=== PATIENT | male | born 1970 | race Caucasian/White ===

== ENCOUNTER → 2019-02-27 | Outpatient (CLI) | payer BC ==
[~2019-02-27] MED LIST: FENOFIBRATE145 MG PO
--- NOTE | 2019-02-28 07:11 | Diagnostic Imaging Report ---
History: Radiculopathy. Back, hip nerve pain Comparison studies: None Technique: Sagittal and axial T2 , sagittal T1 and IR, axial spin density oblique, coronal T2. Intravenous contrast: None Findings: Transitional lumbosacral anatomy with partially sacralized L5 with bilateral pseudoarthroses and rudimentary L5-S1 disc. Alignment: Normal lordosis. No scoliosis. Soft tissues: No T2 hyperintense inflammatory changes. Small right kidney with lobulated contour. Paraspinal muscles: No signal abnormalities. Well-preserved. No atrophic changes Lower thoracic cord: Normal in signal and morphology. The tip of the conus is at T12-L1. Cauda equina: No masses. No arachnoiditis. Vertebrae: No compression fracture or infection. Incidental T1 hyperintense L1 vertebral body hemangioma. Small shallow Schmorl's nodes present along the endplates from T10 to L3. Degenerative changes: L1-L2: Patent canal and foramina. L2-L3: Patent canal and foramina. L3-L4: Symmetric bulging disc and mild facet arthrosis do not result significant canal or foraminal stenosis. L4-L5: Mildly degenerated disc with loss of disc height and loss of T2 disc signal. Asymmetric right disc bulge with superimposed 15 mm x 6 mm x 11 mm (SI x AP x TV) and inferiorly migrated right subarticular disc extrusion/possible extruded disc which impinges on the right L5 nerve root. Disc herniation is T2 hyperintense which may indicate recent herniation. Asymmetric right disc bulge and mild facet arthrosis result in mild right foraminal stenosis. No significant canal or left foraminal stenosis. L5-S1: Transitional level. Patent canal and foramina. Partially imaged sacroiliac joints: Degenerative changes bilaterally. No marrow edema or joint effusion. IMPRESSION: 1. Transitional lumbosacral anatomy with sacralized L5. 2. Right subarticular L4-L5 disc extrusion/possible sequestered disc impinges on the right L5 nerve root. 3. Mild right L4-L5 degenerative foraminal stenosis. 4. No significant canal stenosis. 5. Incidental small right kidney. Signed by: Dr. Maged Bae M.D. on 02/28/2019 7:08 AM
== END ==
LOC: MRI 14:36
PROVIDERS: ATTEND Specialist
DX: M54.16 Radiculopathy, lumbar region (principal)
CPT/HCPCS: 72148

== ENCOUNTER 2019-03-05 13:58 | Outpatient (RCR) | payer BC ==
[2019-03-13] MEDS ORDERED: TRICOR48 MG PO (15:19)
[2019-03-13] MEDS ORDERED: ASPIRIN81 MG PO (15:19)
[2019-03-13] MEDS ORDERED: METOPROLOL SUCC25 MG PO (15:19)
[2019-03-13] MEDS ORDERED: LIPITOR20 MG PO (15:19)
[2019-03-15] MEDS ORDERED: NORCO 7.5-3251 EACH PO (13:10)
== END 2019-03-23 ==
LOC: PT 13:58
PROVIDERS: ATTEND Specialist
DX: M54.16 Radiculopathy, lumbar region (principal); M62.81 Muscle weakness (generalized); M79.604 Pain in right leg

== ENCOUNTER 2019-03-14 09:08 | Observation (INO) | payer BC ==
[2019-03-13 15:55] LABS: BASOPHILS % 0.6 % (0.0-1.0); EOSINOPHILS # (AUTO) 0.2 (0.0-0.4); EOSINOPHILS % 2.4 % (0.0-6.0); HEMATOCRIT 43.4 % (38.2-49.6); LYMPHOCYTES # (AUTO) 2.6 (1.0-3.2); LYMPHOCYTES % 38.9 % (18.0-39.1); MEAN CORPUSCULAR HEMOGLOBIN 31.5 pg (28-32); MEAN CORPUSCULAR HGB CONC 34.6 g/dL (31-35); MEAN CORPUSCULAR VOLUME 91.2 fL (81-99); MONOCYTES # (AUTO) 0.7 (0.2-0.8); MONOCYTES % 9.8 % (4.4-11.3); NEUTROPHILS # (AUTO) 3.2 (2.1-6.9); PLATELET COUNT 205 x10e3/uL (140-360); RED BLOOD COUNT 4.76 x10e6/uL (4.3-5.7)
[2019-03-13 16:05] LABS: INR 0.92; PROTHROMBIN TIME 12.9 seconds (11.9-14.5)
[2019-03-13 16:06] LABS: PARTIAL THROMBOPLASTIN TIME 29.6 seconds (23.8-35.5)
[2019-03-13 16:12] LABS: ANION GAP 12.8 mmol/L (8-16); BLOOD UREA NITROGEN 13 mg/dL (7-26); BUN/CREATININE RATIO 10 (6-25); CALCIUM 9.3 mg/dL (8.4-10.2); CARBON DIOXIDE 26 mmol/L (22-29); CHLORIDE 103 mmol/L (98-107); CREATININE, SERUM 1.24 mg/dL (0.72-1.25); EST GLOMERULAR FILTRATION RATE > 60 ML/MIN (60-); GLUCOSE 69 mg/dL (74-118); POTASSIUM 3.8 mmol/L (3.5-5.1); SODIUM 138 mmol/L (136-145)
--- NOTE | 2019-03-13 16:13 | Diagnostic Imaging Report ---
EXAMINATION: CHEST 2 VIEWS INDICATION: Pre-operative COMPARISON: None FINDINGS: LINES/TUBES:None LUNGS:The lungs are well-inflated. No focal consolidation or pulmonary edema. PLEURA:No pleural effusion or pneumothorax. MEDIASTINUM:The cardiomediastinal silhouette appears normal in size and shape. BONES/SOFT TISSUES:No acute osseous injury. ABDOMEN:No free air under the diaphragm. IMPRESSION: No focal pneumonia or pulmonary edema. Signed by: Girma Forman MD on 03/13/2019 4:10 PM
[~2019-03-14] VITALS: Ht 182.9 cm; Wt 102.1 kg
[~2019-03-14 09:08] MED LIST changes: +ACETAMINOPHEN 1000 MG/100 ML 100 ML IV ONE; +ASPIRIN81 MG PO; +IBUPROFEN 800MG/ 250ML 250 ML IV ONE; +LIDOCAINE HCL (LTA) 4 ML SOLN ONE; +LIPITOR20 MG PO; +METOPROLOL SUCC25 MG PO; +TRICOR48 MG PO
--- OUTSIDE RECORDS SUMMARY | 2019-03-14 09:14 | XMS REPORT ---
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 Allergies, Adverse Reactions, Alerts This patient has no known allergies or adverse reactions. Medications This patient has no known medications. Results Test Description Test Time Test Comments Text Results Atomic Results Result Comments CHEST 2 VIEWS 2019-03-13 16:09:00 [place] [address] Patient Name: LUPE ROSS MR #: [id number] : 1970 Age/Sex: 48/M Req #: [id number] Adm Physician: Ordered by: RADHA KHAN MD Report #: [id number] Location: OR Room/Bed: Procedure: [id number] DX/CHEST 2 VIEWS Exam Date: Exam Time: REPORT STATUS: Signed EXAMINATION: CHEST 2 VIEWS INDICATION: Pre-operative COMPARISON: None FINDINGS: LINES/TUBES:None LUNGS:The lungs are well- inflated. No focal consolidation or pulmonary edema. PLEURA:No pleural effusion or pneumothorax. MEDIASTINUM:The cardiomediastinal silhouette appears normal in size and shape. BONES/SOFT TISSUES:No acute osseous injury. ABDOMEN:No free air under the diaphragm. IMPRESSION: No focal pneumonia or pulmonary edema. Signed by: Pina Morrison MD on 03/13/2019 4:10 PM Dictated By: PINA MORRISON MD 09 Transcribed By: JOSEP on 03/13/191609 COPY TO: RADHA KHAN MD MRI SPINE LUMBAR WO 2019-02-28 06:56:00 [place] [address] Patient Name: LUPE ROSS MR #: [id number] : 1970 Age/Sex: 48/M Req #: [id number] Adm Physician: Ordered by: KELVIN TRUJILLO MD Report #: [id number] Location: MRI Room/Bed: Procedure: [id number] MRI/MRI SPINE LUMBAR WO Exam Date: Exam Time: REPORT STATUS: Signed History: Radiculopathy. Back, hip nerve pain Comparison studies: No ne Technique: Sagittal and axial T2 , sagittal T1 and IR, axial spin density oblique, coronal T2. Intravenous contrast: None Findings: Transitional lumbosacral anatomy with partially sacralized L5 with bilateral pseudoarthroses and rudimentary L5-S1 disc. Alignment: Normal lordosis. No scoliosis. Soft tissues: No T2 hyperintense inflammatory changes. Small right kidney with lobulated contour. Paraspinal muscles: No signal abnormalities. Well-preserved. No atrophic changes Lower thoracic cord: Normal in signal and morphology. The tip of the conus is at T12-L1. Cauda equina: No masses. No arachnoiditis. Vertebrae: No compression fracture or infection. Incidental T1 hyperintense L1 vertebral body hemangioma. Small shallow Schmorl's nodes present along the endplates from T10 to L3. Degenerative changes: L1-L2: Patent canal and foramina. L2-L3: Patent canal and foramina. L3-L4: Symmetric bulging disc and mild facet arthrosis do not result significant canal or foraminal stenosis. L4-L5: Mildly degenerated disc with loss of disc height and loss of T2 disc signal. Asymmetric right disc bulge with superimposed 15 mm x 6 mm x 11 mm (SI x AP x TV) and inferiorly migrated right subarticular disc extrusion/possible extruded disc which impinges on the right L5 nerve root. Disc herniation is T2 hyperintense which may indicate recent herniation. Asymmetric right disc bulge and mild facet arthrosis result in mild right foraminal stenosis. No significant canal or left foraminal stenosis. L5-S1: Transitional level. Patent canal and foramina. Partially imaged sacroiliac joints: Degenerative changes bilaterally. No marrow edema or joint effusion. IMPRESSION: 1. Transitional lumbosacral anatomy with sacralized L5. 2. Right subarticular L4-L5 disc extrusion/possible sequestered disc impinges on the right L5 nerve root. 3. Mild right L4-L5 degenerative foraminal stenosis. 4. No significant canal stenosis. 5. Incidental small right kidney. Signed by: Dr. Kelvin Bae M.D. on 02/28/2019 7:08 AM Dictated By: KELVIN BAE MD 7 Transcribed By: JOSEP on 02/28/19707 COPY TO: KELVIN TRUJILLO MD
[2019-03-14] MEDS ORDERED: BUPIVACAINE 0.5%/EPI 30 ML SDV INJ ONE (09:16)
[2019-03-14] MEDS ORDERED: BACITRACIN 50,000 UNIT VIAL ONE (09:16)
[2019-03-14] MEDS ORDERED: THROMBIN FOR SOLN 5,000 UNIT VIAL ONE (09:16)
[2019-03-14] MEDS ORDERED: CEFAZOLIN SOD 1 GM/NS 50ML 50 ML IV ONE (09:54)
--- NOTE | 2019-03-14 13:11 | Operative Report ---
DATE OF PROCEDURE: 03/14/2019 SURGEON: Alvaro Leong MD PREOPERATIVE DIAGNOSIS: Right L4-L5 disk herniation with radiculopathy, M51.16. POSTOPERATIVE DIAGNOSIS: Right L4-L5 disk herniation with radiculopathy, M51.16. PROCEDURES: Right L4-L5 laminotomy, medial facetectomy, and microsurgical diskectomy, 11687. ANESTHESIA: General. INDICATIONS: The patient is a 48-year-old man, who presents with a subarticular right L4-L5 disk herniation in the setting of transitional lumbosacral anatomy. He is symptomatic with an intractable right L5 radiculopathy. He was taken to the surgery for microsurgical decompression of the L5 nerve root. PROCEDURE IN DETAIL: After induction of general anesthesia, the patient was placed on the operating table in prone position over Santhosh frame. Lumbar region was prepped and draped in sterile fashion. A preoperative x-ray was obtained. A small midline incision was created. Lumbar fascia was opened in right of midline and a subperiosteal dissection was carried out to expose the right-sided L4 and L5 lamina and the medial aspect of the L4-L5 facet joint. A 2nd x-ray confirmed correct localization. The operating microscope was brought in. A high-speed drill equipped with the gustavo bur was used to drill the inferior aspect of lamina of L4 and superior rim of the lamina of L5 and the medial rim of the L4-L5 facet joint. The hypertrophic ligamentum flavum was resected and the dural sac and the L5 nerve root were exposed. The nerve root was slightly retracted medially. The herniated disk material came into view just below the level of the disk space. The posterior longitudinal ligament was incised with a #11 blade and the herniated disk material was retrieved with a micro ball probe and grasped with a micropituitary rongeur and removed. This maneuver was repeated several additional times and additional fragments of this were retrieved and removed from the right L5 lateral recess. The opening into the annulus of the disk was found to be quite small, therefore the disk space itself was not disrupted during this operation. Excellent decompression of the L5 nerve root had been achieved. The wound was irrigated with bacitracin solution. Meticulous hemostasis was secured. Retractor was removed. The lumbar fascia was closed with 0 Vicryl sutures. The subcutaneous layer was closed with 2-0 Vicryl sutures. The skin was closed with 3-0 Monocryl sutures in subcuticular fashion. Steri-Strips and dressing were applied. The patient was awakened, extubated, and taken to postanesthesia care in stable condition. No intraoperative complications were encountered. Estimated blood loss was 10 mL. Alvaro Leong MD PP/AWAIS /[id number]
[2019-03-14] MEDS ORDERED: FENTANYL CITRATE/PF 100MCG/2 ML INJ ONE ×2 (13:41→14:30)
[2019-03-14] MEDS ORDERED: MORPHINE SULFATE 5 MG/ML VIAL IM PRN (13:45)
[2019-03-14] MEDS ORDERED: ACETAMINOPHEN 325 MG TAB PO PRN (13:45)
[2019-03-14] MEDS ORDERED: ZOLPIDEM TARTRATE 5 MG TAB PO PRN (13:45)
[2019-03-14] MEDS ORDERED: MAGNESIUM/ALUMINUM/SIMETHICONE 30 ML UDC PO PRN (13:45)
[2019-03-14] MEDS ORDERED: PROMETHAZINE HCL (IM) 25 MG/ML VIAL IM PRN (13:45)
[2019-03-14] MEDS ORDERED: ONDANSETRON HCL INJ 2MG/ML 2ML 2 MG/ML VIAL IV PRN (13:45)
[2019-03-14] MEDS: LACTATED RINGER'S 1,000 ML IV SCH ×3 (14:00→19:28)
[2019-03-14] MEDS ORDERED: MORPHINE SULFATE INJ 4 MG/ML INJ 1ML IM PRN (14:15)
--- NOTE | 2019-03-14 14:26 | NUR ---
RECEIVED REPORT FROM BHAVIN IN PACU AWAITING FOR PT TO ARRIVE TO FLOOR
[2019-03-14 14:29] VITALS: BP 147/93
--- NOTE | 2019-03-14 14:29 | NUR ---
RECEIVED PT TO FLOOR AA0X3 ASSISTED PT FROM STRETCHER TO TOILET. PT VOIDED INTO TOILET CLEAR YELLOW URINE PT LOWER BACK DRESSING IS DRY AND INTACT NO LEAKAGE NOTED PT HAS AN IV TO THE RIGHT HAND 20 WITH LR RUNNING SITE IS CLEAN AND DRY PT PAIN IS A 4.10 STATES IS COMFORTABLE AND WILL CAN WHEN NEEDING SOMETHING SED AND COMPRESSIONS STOCKINGS PRESENT WILL CONTINUE TO MONITOR PT CLOSELY SIDE RAILSX2, BED WHEELS LOCKED, CALL LIGHT IS WITHIN EASY REACH, INSTRUCTED TO CALL FOR ASSISTANCE IF NEEDED
[2019-03-14] MEDS ORDERED: MIDAZOLAM HCL 2 MG/2 ML VIAL ONE (14:30)
[2019-03-14 16:03] VITALS: BP 137/82
[2019-03-14] MEDS: OXYCODONE/ACETAMINOPHEN 5-325 1 EACH TABLET PO PRN ×2 (16:06→20:13)
[2019-03-14] MEDS: CARISOPRODOL 350 MG TAB PO PRN ×2 (16:07→20:13)
[2019-03-14] MEDS ORDERED: LIDOCAINE HCL 2% JELLY 5 ML TUBE ONE (18:46)
[2019-03-14] MEDS ORDERED: PROPOFOL IV EMULSION 10 MG/ML 20 ML VIAL ONE (18:46)
[2019-03-14] MEDS ORDERED: SEVOFLURANE INHAL SOLN 250 ML PEN BTL ONE (18:46)
[2019-03-14] MEDS ORDERED: LIDOCAINE HCL 2% LOCAL INJ 5 ML SDV VIAL INJ ONE (18:46)
[2019-03-14] MEDS ORDERED: ROCURONIUM BROMIDE 10 MG/ML 5ML VIAL ONE (18:46)
[2019-03-14] MEDS ORDERED: ONDANSETRON HCL INJ 2MG/ML 2ML 2 MG/ML VIAL ONE (18:46)
[2019-03-14] MEDS ORDERED: DEXAMETHASONE SOD PHOS INJ 4 MG/ML VIAL ONE (18:46)
[2019-03-14] MEDS: CEFAZOLIN SOD 1 GM/NS 50ML 50 ML IV SCH (19:08)
[2019-03-14 19:30] VITALS: BP 137/82
[2019-03-14 20:32] VITALS: BP 152/78
[2019-03-14] MEDS ORDERED: ATORVASTATIN 40 MG TAB PO SCH (21:00)
[2019-03-14] MEDS: CEPACOL SORE THROAT LOZENGES PO PRN (21:05)
[2019-03-15] VITALS: BP 124/71
[2019-03-15] MEDS: CEPACOL SORE THROAT LOZENGES PO PRN (01:09)
[2019-03-15] MEDS: OXYCODONE/ACETAMINOPHEN 5-325 1 EACH TABLET PO PRN ×3 (01:14→10:20)
[2019-03-15] MEDS: CARISOPRODOL 350 MG TAB PO PRN ×2 (01:15→05:43)
[2019-03-15 04:00] VITALS: BP 117/61
[2019-03-15] MEDS: CEFAZOLIN SOD 1 GM/NS 50ML 50 ML IV SCH (04:18)
[2019-03-15 08:13] VITALS: BP 130/72
[2019-03-15] MEDS ORDERED: METOPROLOL SUCCINATE 25 MG TAB XL PO SCH (09:00)
[2019-03-15] MEDS ORDERED: FENOFIBRATE 48 MG TAB PO SCH (09:00)
[2019-03-15 10:28] VITALS: BP 130/72
[2019-03-15] MEDS ORDERED: NORCO 7.5-3251 EACH PO (13:10)
[2019-03-15 13:25] VITALS: BP 140/86
--- NOTE | 2019-03-15 14:30 | NUR ---
BACK DRESSING REMOVED, STERI STRIPS INTACT, DISCHARGE INSTRUCTIONS REVIEWED WITH PT, PT VERBALIZED UNDERSTANDING, WHEELED OFF UNIT VIA WC, NO CHANGE IN CONDITION
== END 2019-03-15 14:38 | disposition home or self-care (01) ==
LOC: OR 09:08 → PACU V 13:46 → MED/SURG 14:29
PROVIDERS: ADMIT Neurological Surgery; ATTEND Neurological Surgery
DX: M51.16 Intervertebral disc disorders with radiculopathy, lumbar region (principal); Z79.82 Long term (current) use of aspirin; I25.10 Atherosclerotic heart disease of native coronary artery without angina pectoris; Z98.61 Coronary angioplasty status; Z01.810 Encounter for preprocedural cardiovascular examination; Z01.812 Encounter for preprocedural laboratory examination; Z01.811 Encounter for preprocedural respiratory examination
CPT/HCPCS: 36415; 63047; 71046; 72020; 80048; 85025; 85610; 85730; 86850; 86900; 88304; 93005; G0378 ×2; J0131; J0690 ×2; J1100; J2001 ×2; J2250; J2405; J2704; J3010; J7121

== ENCOUNTER 2019-05-23 06:28 | Observation (INO) | payer BC ==
[2019-05-21 15:09] LABS: BASOPHILS % 0.5 % (0.0-1.0); EOSINOPHILS # (AUTO) 0.2 (0.0-0.4); EOSINOPHILS % 2.8 % (0.0-6.0); HEMATOCRIT 44.5 % (38.2-49.6); HEMOGLOBIN 15.2 g/dL (14.0-18.0); LYMPHOCYTES # (AUTO) 3.5 (1.0-3.2); LYMPHOCYTES % 40.8 % (18.0-39.1); MEAN CORPUSCULAR HEMOGLOBIN 31.6 pg (28-32); MEAN CORPUSCULAR HGB CONC 34.2 g/dL (31-35); MEAN CORPUSCULAR VOLUME 92.5 fL (81-99); MONOCYTES # (AUTO) 0.7 (0.2-0.8); MONOCYTES % 8.5 % (4.4-11.3); NEUTROPHILS # (AUTO) 4.1 (2.1-6.9); NEUTROPHILS % 46.9 % (38.7-80.0); PLATELET COUNT 193 x10e3/uL (140-360); RED BLOOD COUNT 4.81 x10e6/uL (4.3-5.7); RED CELL DISTRIBUTION WIDTH 11.9 % (11.7-14.4)
[2019-05-21 15:22] LABS: INR 0.92; PROTHROMBIN TIME 12.8 seconds (11.9-14.5)
[2019-05-21 15:23] LABS: PARTIAL THROMBOPLASTIN TIME 30.7 seconds (23.8-35.5)
[2019-05-21 16:03] LABS: ANION GAP 12.8 mmol/L (8-16); BLOOD UREA NITROGEN 17 mg/dL (7-26); BUN/CREATININE RATIO 17 (6-25); CALCIUM 9.2 mg/dL (8.4-10.2); CARBON DIOXIDE 26 mmol/L (22-29); CHLORIDE 105 mmol/L (98-107); CREATININE, SERUM 1.03 mg/dL (0.72-1.25); EST GLOMERULAR FILTRATION RATE > 60 ML/MIN (60-); GLUCOSE 81 mg/dL (74-118); POTASSIUM 3.8 mmol/L (3.5-5.1); SODIUM 140 mmol/L (136-145)
[~2019-05-23] VITALS: Ht 180.3 cm; Wt 102.1 kg
[~2019-05-23 06:28] MED LIST changes: -ACETAMINOPHEN 1000 MG/100 ML 100 ML IV ONE; -IBUPROFEN 800MG/ 250ML 250 ML IV ONE; -LIDOCAINE HCL (LTA) 4 ML SOLN ONE; +NORCO 7.5-3251 EACH PO
[2019-05-23] MEDS ORDERED: BACITRACIN 50,000 UNIT VIAL ONE (06:44)
[2019-05-23] MEDS ORDERED: BUPIVACAINE 0.5%/EPI 30 ML SDV INJ ONE (06:44)
[2019-05-23] MEDS ORDERED: THROMBIN FOR SOLN 5,000 UNIT VIAL ONE (06:44)
[2019-05-23] MEDS ORDERED: CEFAZOLIN SOD 1 GM/NS 50ML 100 ML IV ONE (07:10)
[2019-05-23] MEDS ORDERED: ACETAMINOPHEN 1000 MG/100 ML 100 ML IV ONE (07:17)
[2019-05-23] MEDS ORDERED: IBUPROFEN 800MG/ 200ML 200 ML IV ONE (07:17)
[2019-05-23] MEDS ORDERED: LIDOCAINE HCL (LTA) 4 ML SOLN ONE (07:17)
[2019-05-23] MEDS: LACTATED RINGER'S 1,000 ML IV SCH ×2 (09:46→17:08)
[2019-05-23] MEDS ORDERED: ZOLPIDEM TARTRATE 5 MG TAB PO PRN (10:00)
[2019-05-23] MEDS ORDERED: PROMETHAZINE HCL (IM) 25 MG/ML VIAL IM PRN (10:00)
[2019-05-23] MEDS ORDERED: ONDANSETRON HCL INJ 2MG/ML 2ML 2 MG/ML VIAL IV PRN (10:00)
[2019-05-23] MEDS ORDERED: MORPHINE SULFATE 5 MG/ML VIAL IM PRN (10:00)
[2019-05-23] MEDS ORDERED: CARISOPRODOL 350 MG TAB PO PRN (10:00)
[2019-05-23] MEDS ORDERED: OXYCODONE/ACETAMINOPHEN 5-325 1 EACH TABLET PO PRN (10:00)
[2019-05-23] MEDS ORDERED: ACETAMINOPHEN 325 MG TAB PO PRN (10:00)
[2019-05-23] MEDS ORDERED: MAGNESIUM/ALUMINUM/SIMETHICONE 30 ML UDC PO PRN (10:00)
[2019-05-23] MEDS ORDERED: FENTANYL CITRATE/PF 100MCG/2 ML INJ ONE ×2 (11:09→19:20)
--- NOTE | 2019-05-23 12:05 | NUR ---
received patient s/p laminectomy, awake and alert and no s/s of distress and no c/o pain at this time. Patient and updated on plan of care and all questions addressed. call montero in reach and will continue to monitor.
[2019-05-23 12:30] VITALS: BP 112/66
[2019-05-23] MEDS: HYDROMORPHONE 2MG/ML 2 MG/ML ML IV PRN ×2 (14:25→23:13)
[2019-05-23 14:44] VITALS: BP 112/66
[2019-05-23 16:00] VITALS: BP 117/64
[2019-05-23] MEDS: CEFAZOLIN SOD 1 GM/NS 50ML 50 ML IV SCH (16:16)
--- NOTE | 2019-05-23 16:39 | Operative Report ---
DATE OF PROCEDURE: 05/23/2019 SURGEON: Alvaro Leong MD PREOPERATIVE DIAGNOSIS: Recurrent right L4-L5 disk herniation with radiculopathy, M51.16. POSTOPERATIVE DIAGNOSIS: Recurrent right L4-L5 disk herniation with radiculopathy, M51.16. PROCEDURE: Redo right L4-L5 laminotomy and medial facetectomy and microsurgical diskectomy, 01062. ANESTHESIA: General. INDICATIONS: The patient is a 48-year-old man, who presents with a large recurrent right L4-L5 disk herniation with severe right L5 radiculopathy. He was taken to the operating room for redo microsurgical diskectomy. DESCRIPTION OF PROCEDURE: After induction of general anesthesia, the patient was placed on the operating table in prone position over Santhosh frame. The lumbar region was prepped and draped in sterile fashion. A preoperative x-ray was obtained. A small midline incision was created precisely overlying his previous incision scar. The lumbar fascia was opened in right of midline and dissection was carried out to expose the right side of L4 and L5 laminae and the region of the previous laminotomy. The second x-ray confirmed correct localization. The operating microscope was brought in. A high-speed drill equipped with a 4 mm gustavo bur was used to extend laminotomy slightly superiorly and laterally along the medial aspect of the L4-L5 facet joint. The virgin epidural plane was defined and the residual ligamentum flavum in this region was resected. The epidural plane was then followed inferiorly and epidural scar overlying the dura was resected to expose the lateral margin of the dura and the L5 traversing nerve root. A ball probe was then passed ventral to the nerve root and used to retrieve the edge of the extruded disk material. This edge was then grasped with a micropituitary rongeur and a very large fragment of recurrent disk herniation was carefully retrieved and removed as one single fragment. Excellent decompression was immediately achieved in this fashion. The opening into the annulus of this was slightly enlarged with a #11 blade and the loose contents of the disk were evacuated with a micro-pituitary rongeur. Meticulous hemostasis was secured. The lumbar fascia was closed with #0 Vicryl suture. Subcutaneous layer was closed with 2-0 Vicryl sutures. The skin was closed with 3-0 Monocryl sutures in subcuticular fashion. Steri-Strips and dressing were applied. The patient was awakened, extubated, and taken to postanesthesia care unit in stable condition. No intraoperative complications were encountered. ESTIMATED BLOOD LOSS: Minimal. Alvaro Leong MD PP/AWAIS /[id number]
[2019-05-23 17:30] VITALS: BP 136/67
--- NOTE | 2019-05-23 17:30 | NUR ---
pt arrived to unit resp even and unlabored at this time no distress noted pt able to make needs known, pt oriented to room and call light.
[2019-05-23] MEDS: HYDROCODONE/APAP 7.5MG-325MG 1 EA TAB PO PRN (18:20)
--- NOTE | 2019-05-23 18:25 | NUR ---
pt discharged home , pt was given information to follow up with his pcp, and RENAL doctor, iv site removed, no swelling no redness to site, and medication NO MEDICATION GIVEN AT THIS TIME. Addendum: 05/23/19 at 1827 by Maria G Cruz LVN WRONG DOCUMENTARY ENTRY ON WRONG PT. GURINDER LATHAM
[2019-05-23] MEDS ORDERED: DEXAMETHASONE SOD PHOS INJ 4 MG/ML VIAL ONE (18:31)
[2019-05-23] MEDS ORDERED: NEOSTIGMINE 1 MG/ML 10ML VIAL ONE (18:31)
[2019-05-23] MEDS ORDERED: GLYCOPYRROLATE INJ 0.2 MG/ML VIAL ONE (18:31)
[2019-05-23] MEDS ORDERED: SEVOFLURANE INHAL SOLN 250 ML PEN BTL ONE (18:31)
[2019-05-23] MEDS ORDERED: ROCURONIUM BROMIDE 10 MG/ML 5ML VIAL ONE (18:31)
[2019-05-23] MEDS ORDERED: ONDANSETRON HCL INJ 2MG/ML 2ML 2 MG/ML VIAL ONE (18:31)
[2019-05-23] MEDS ORDERED: LIDOCAINE HCL 2% LOCAL INJ 5 ML SDV VIAL INJ ONE (18:31)
[2019-05-23] MEDS ORDERED: PROPOFOL IV EMULSION 10 MG/ML 20 ML VIAL ONE (18:31)
[2019-05-23] MEDS ORDERED: MIDAZOLAM HCL 2 MG/2 ML VIAL ONE (19:20)
[2019-05-23 20:00] VITALS: BP 140/72
[2019-05-23 21:18] VITALS: BP 140/72
[2019-05-24] VITALS: BP 121/58
[2019-05-24] MEDS: CEFAZOLIN SOD 1 GM/NS 50ML 50 ML IV SCH ×2 (00:25→09:11)
[2019-05-24] MEDS: HYDROMORPHONE 2MG/ML 2 MG/ML ML IV PRN (03:36)
[2019-05-24 04:00] VITALS: BP_SYST 122; BP_SYST 167; BP_DIAS 72; BP_DIAS 81
[2019-05-24] MEDS: LACTATED RINGER'S 1,000 ML IV SCH (05:42)
--- NOTE | 2019-05-24 07:04 | NUR ---
patient endorsed to next shift for continuity of care.
[2019-05-24] MEDS: HYDROCODONE/APAP 7.5MG-325MG 1 EA TAB PO PRN (07:19)
[2019-05-24 08:00] VITALS: BP 139/93
--- NOTE | 2019-05-24 08:30 | NUR ---
Morning med pass completed and the pt. advised that I will get his discharge paperwork completed francesco.
[2019-05-24] MEDS ORDERED: FENOFIBRATE 48 MG TAB PO SCH (09:00)
[2019-05-24] MEDS ORDERED: METOPROLOL SUCCINATE 25 MG TAB XL PO SCH (09:00)
[2019-05-24] MEDS ORDERED: ONDANSETRON HCL 4 MG ORAL DISINTEGRATING TAB PO PRN (09:30)
[2019-05-24 10:34] VITALS: BP 139/93
[2019-05-24 10:43] VITALS: BP 139/93
--- NOTE | 2019-05-24 10:50 | NUR ---
The pt. was discharged home in stable condition with prescriptions and follow up information. escorted ambulatory to private car for transport home.
[2019-05-24] MEDS ORDERED: ATORVASTATIN 40 MG TAB PO SCH (21:00)
== END 2019-05-24 10:53 | disposition home or self-care (01) ==
LOC: OR 06:28 → PACU V 09:47 → IMCU 12:09 → MED/SURG 17:08
PROVIDERS: ADMIT Neurological Surgery; ATTEND Neurological Surgery
DX: M51.16 Intervertebral disc disorders with radiculopathy, lumbar region (principal)
CPT/HCPCS: 36415; 63047; 72020; 80048; 85025; 85610; 85730; 86850; 86900; 88304; G0378 ×2; J0131; J0690 ×2; J1100; J1170 ×2; J2001; J2250; J2270; J2405; J2704; J2710; J3010; J7121 ×2

== ENCOUNTER → 2021-02-09 | Day surgery (SDC) | payer BC ==
[2021-02-05 14:45] LABS: BASOPHILS % 0.4 % (0.0-1.0); EOSINOPHILS # (AUTO) 0.2 (0.0-0.4); EOSINOPHILS % 2.4 % (0.0-6.0); HEMATOCRIT 43.2 % (38.2-49.6); HEMOGLOBIN 14.6 g/dL (14.0-18.0); LYMPHOCYTES # (AUTO) 2.5 (1.0-3.2); LYMPHOCYTES % 35.7 % (18.0-39.1); MEAN CORPUSCULAR HGB CONC 33.8 g/dL (31-35); MEAN CORPUSCULAR VOLUME 91.7 fL (81-99); MONOCYTES # (AUTO) 0.6 (0.2-0.8); MONOCYTES % 8.7 % (4.4-11.3); NEUTROPHILS # (AUTO) 3.7 (2.1-6.9); NEUTROPHILS % 52.2 % (38.7-80.0); PLATELET COUNT 196 x10e3/uL (140-360); RED BLOOD COUNT 4.71 x10e6/uL (4.3-5.7); RED CELL DISTRIBUTION WIDTH 11.9 % (11.7-14.4)
[~2021-02-09] MED LIST changes: +FENTANYL CITRATE/PF 100MCG/2 ML INJ ONE; +MIDAZOLAM HCL 2 MG/2 ML VIAL ONE; +NAPROXEN250 MG PO; +SODIUM CHLORIDE 0.9% 50ML 50 ML ONE
[2021-02-09 11:40] VITALS: BP 132/83
== END | disposition home or self-care (01) ==
LOC: OR 07:34
PROVIDERS: ATTEND Specialist
DX: S83.232A Complex tear of medial meniscus, current injury, left knee, initial encounter (principal); M65.862 Other synovitis and tenosynovitis, left lower leg; M94.262 Chondromalacia, left knee; I25.10 Atherosclerotic heart disease of native coronary artery without angina pectoris; I25.2 Old myocardial infarction; I71.4 Abdominal aortic aneurysm, without rupture; E78.5 Hyperlipidemia, unspecified; X58.XXXA Exposure to other specified factors, initial encounter; Z01.810 Encounter for preprocedural cardiovascular examination; Z01.812 Encounter for preprocedural laboratory examination; Z01.818 Encounter for other preprocedural examination; Z20.822 Contact with and (suspected) exposure to COVID-19; Z79.82 Long term (current) use of aspirin; Z95.5 Presence of coronary angioplasty implant and graft
CPT/HCPCS: 29881; 36415; 71046; 85025; 93005; J0690; J2250; J3010; U0002

== ENCOUNTER → 2025-02-11 | Day surgery (SDC) | payer BC ==
[2025-02-04 15:27] LABS: BASOPHILS % 0.7 % (0.0-1.0); EOSINOPHILS % 2.1 % (0.0-6.0); LYMPHOCYTES % 36.3 % (18.0-39.1); MONOCYTES % 8.7 % (4.4-11.3); NEUTROPHILS % 51.6 % (38.7-80.0); RED CELL DISTRIBUTION WIDTH 12.8 % (11.7-14.4)
[~2025-02-11] MED LIST changes: +ACETAMINOPHEN 1000 MG/100 ML 100 ML IV ONE; +DEXAMETHASONE SOD PHOS INJ 4 MG/ML SDV ONE; +FOLIC ACID0.4 MG PO; +HYDROCODONE/APAP 7.5MG-325MG 1 EA TAB ONE; +LIDOCAINE HCL 2% LOCAL INJ 5 ML SDV VIAL INJ ONE; -MIDAZOLAM HCL 2 MG/2 ML VIAL ONE; +ONDANSETRON HCL INJ 2MG/ML 2ML 2 MG/ML VIAL ONE; +PROPOFOL IV EMULSION 10 MG/ML 20 ML VIAL ONE; +SEVOFLURANE INHAL SOLN 250 ML PEN BTL ONE; -SODIUM CHLORIDE 0.9% 50ML 50 ML ONE; +TREXALL10 MG PO
[2025-02-11] MEDS: LACTATED RINGER'S 1,000 ML ONE (10:19)
[2025-02-11 12:25] VITALS: TEMP 98.6
[2025-02-11] MEDS: FENTANYL CITRATE/PF 100MCG/2 ML INJ IV ONE (12:44)
[2025-02-11] MEDS: HYDROCODONE/APAP 7.5MG-325MG 1 EA TAB PO ONE (13:02)
[2025-02-11 13:40] VITALS: BP 140/80; PULSE 59; RESP 13; O2SAT 98
== END | disposition home or self-care (01) ==
LOC: OR 09:49
PROVIDERS: ATTEND Specialist
DX: S83.231A Complex tear of medial meniscus, current injury, right knee, initial encounter (principal); I10 Essential (primary) hypertension; I25.10 Atherosclerotic heart disease of native coronary artery without angina pectoris; E78.5 Hyperlipidemia, unspecified; X58.XXXA Exposure to other specified factors, initial encounter; Y93.A1 Activity, exercise machines primarily for cardiorespiratory conditioning; Y99.8 Other external cause status; Z71.82 Exercise counseling; Z01.810 Encounter for preprocedural cardiovascular examination; Z01.812 Encounter for preprocedural laboratory examination; Z01.818 Encounter for other preprocedural examination; Z79.82 Long term (current) use of aspirin; Z79.1 Long term (current) use of non-steroidal anti-inflammatories (NSAID); Z79.899 Other long term (current) drug therapy; Z68.31 Body mass index [BMI] 31.0-31.9, adult; Z71.3 Dietary counseling and surveillance; Z95.5 Presence of coronary angioplasty implant and graft
CPT/HCPCS: 29881; 36415; 71046; 85025; 93005; J0131; J0690; J1100; J2003; J2405; J2704; J3010; J7121